=== PATIENT | female | born 1990 | race Caucasian/White ===

== ENCOUNTER → 2020-08-11 16:21 | Outpatient (CLI) | payer OTHER, SELFPAY | PROVIDERS: PCP Registered Nurse; Visit Provider Physician Assistant | DX: N34.3 Urethral syndrome, unspecified (principal) | CPT/HCPCS: 87086 ==

== ENCOUNTER 2020-08-14 15:05 | Emergency (ER) | payer OTHER, SELFPAY ==
[2020-08-14 15:20] VITALS: BP 155/97; PULSE 88; RESP 16; TEMP 36.2; O2SAT 99; BMI 20.5
[2020-08-14 15:55] LABS: Alanine Aminotransferase 18 IU/L (<35)
[2020-08-14 16:39] LABS: Hepatitis B Surface Antigen NEGATIVE s/c (NEGATIVE)
[2020-08-14 16:56] LABS: HIV 1 & 2 Ab/Ag 4th Gen Combo NEGATIVE (NEGATIVE); Hep C Virus Ab w/Reflex Quant NEGATIVE s/c (NEGATIVE)
--- NOTE | 2020-08-14 18:13 | ED.GENADULT ---
HPI - General Adult <PITA Suarez - Last Filed: 08/14/20 18:25> General Chief complaint: Blood/Body fluid exposure Stated complaint: LEFT HAND NEEDLE STICK Time Seen by Provider: 08/14/20 17:26 Source: patient Mode of arrival: Ambulatory Limitations: no limitations History of Present Illness HPI narrative: This is a 29-year-old female, nonsmoker, who has past medical history significant for type 1 diabetes using insulin and hypothyroidism presents to ED after accidental needle stick when she was vaccinating community members at [facility] for COVID. Patient not initially feel the needle prick but so blood her hand/glove on left tip of index finger and is not sure who she had exposed. Patient reports she cleaned well the area well with soap and water after. 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 She reports Tdap is up to date. PCP Miladys Goldberg. Related Data Home Medications Medication Instructions Recorded Confirmed insulin glargine 100 unit/mL (3 21 unit SUBCUT DAILY ml 07/14/20 08/11/20 mL) subcutaneous pen levothyroxine 137 mcg capsule 137 mcg PO DAILY 07/14/20 08/11/20 prenat.vits,evonne,gwm-[id number]-ksiyd 1 tab PO DAILY 08/05/20 08/11/20 Previous Rx's Medication Instructions Recorded insulin lispro 100 unit/mL See Rx Instructions SUBCUT 07/14/20 subcutaneous pen .COMPLEX #3 ml sulfamethoxazole 800 1 tab PO BID 7 Days #14 tab 08/11/20 mg-trimethoprim 160 mg tablet Allergies Allergy/AdvReac Type Severity Reaction Status Date / Time No Known Drug Allergies Allergy Unverified 08/14/20 15:25 Review of Systems <PITA Suarez - Last Filed: 08/14/20 18:25> Review of Systems Narrative: General: Denies fever, chills, fatigue, malaise, sweats. HEENT: Denies sinus pain, ear pain, sore throat, difficulty swallowing, dizziness. Respiratory: Denies dyspnea, cough, wheezing, hemoptysis, sputum. Cardiovascular: Denies chest pain, palpitations, orthopnea, edema. Gastrointestinal: Denies nausea, vomiting, abdominal pain, diarrhea, constipation, melena. Skin: See HPI Patient History <PITA Suarez - Last Filed: 08/14/20 18:25> Medical History Hypothyroidism (~1999) Preeclampsia (~2018) Type 1 diabetes (~1992) UTI (urinary tract infection) Surgical History Anesthesia History of section (~09/18/18) History of tonsillectomy (~1996) Family History Father Hypertension Atrial fibrillation History of heart disease Hyperlipidemia Mother Rheumatoid arthritis Sister Diabetes mellitus Grandfather Hypertension Grandmother Cancer HCC (hepatocellular carcinoma) Grandfather Alzheimer's disease Grandmother Alzheimer's disease Social History Smoking Status: Never smoker Smoking Status: Never smoker Substance Use Type: does not use Exam <PIAT Suarez - Last Filed: 08/14/20 18:25> Narrative Exam Narrative: General appearance: well developed, well nourished, in no acute distress. Head: normocephalic, atraumatic, no scalp lesions, non-tender. ENT: Hearing grossly intact. Airway patent. Neck/Thyroid: neck supple, full range of motion, no visible masses or meningeal signs. No JVD, non-tender without lymphadenopathy. Skin: no suspicious rashes, lesions over visible areas. Warm and dry and appropriate color for ethnicity. Unable to see puncture wound on left index finger. Heart: no clubbing, no cyanosis, no edema. Lungs: Breathing even and unlabored. No stridor. No accessory muscles used. Able to speak in full sentences. Chest: normal shape and expansion. Abdomen: non-obese, non-distended. Neurologic: alert and oriented. 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 Psych: good eye contact, normal affect. Initial Vital Signs Initial Vital Signs: Vital Signs Temperature 97.1 F L 08/14/20 15:20 Pulse Rate 88 08/14/20 15:20 Respiratory Rate 16 08/14/20 15:20 Blood Pressure 155/97 H 08/14/20 15:20 Pulse Oximetry 99 08/14/20 15:20 <Varghese Bagley DO - Last Filed: 08/14/20 18:56> Initial Vital Signs Initial Vital Signs: Vital Signs Temperature 97.1 F L 08/14/20 15:20 Pulse Rate 88 08/14/20 15:20 Respiratory Rate 16 08/14/20 15:20 Blood Pressure 155/97 H 08/14/20 15:20 Pulse Oximetry 99 08/14/20 15:20 Scores <Trevon GibbonsPITA gonsalves - Last Filed: 08/14/20 18:25> GCS [place] coma scale eye opening: Spontaneous Sinan coma scale verbal response: Orientated [place] coma scale motor response: Obey commands [place] coma scale total score: 15 Course <Trevon StokesangLakePITA Zhu - Last Filed: 08/14/20 18:25> Vital Signs Vital signs: Vital Signs - 8 hr 08/14/20 15:20 08/14/20 18:18 Temperature 97.1 F L Pulse Rate 88 70 Respiratory Rate 16 16 Blood Pressure 155/97 H 142/86 H Pulse Oximetry 99 99 <Varghese Bagley DO - Last Filed: 08/14/20 18:56> Vital Signs Vital signs: Vital Signs - 8 hr 08/14/20 15:20 08/14/20 18:18 Temperature 97.1 F L Pulse Rate 88 70 Respiratory Rate 16 16 Blood Pressure 155/97 H 142/86 H Pulse Oximetry 99 99 Medical Decision Making <Trevon GibbonsPITA gonsalves - Last Filed: 08/14/20 18:25> Differential Diagnosis Differential Diagnosis: Needle stick exposure Medical Records Medical records reviewed: Yes I reviewed the patient's medical records. Lab Data Lab results reviewed: Yes I reviewed the patient's lab results. Labs: Lab Results 08/14/20 08/14/20 Range/Units 15:39 15:39 ALT 18 (<35) IU/L Hep Bs Antigen Negative (NEGATIVE) s/c Hepatitis C Antibody Negative (NEGATIVE) s/c HIV 1&2 Ab/P24 Ag 4thGn Negative (NEGATIVE) MDM Narrative Additional Information: This is a 29-year-old female who was doing volunteer work to immunize community member at [facility] [employer] with COVID vaccination and accidentally had a needlestick on left tip of index finger. 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 Initial needle exposure pannel drawn. Negative for HIV 1 & 2, Hep C antibody, Hep B Antigen. Pending for Hep B antibody. We discussed that it is very important to follow-up with primary care physician since this is not a work injury that she can follow up with employee health. Patient is asymptomatic at this time. In shared decision making, she deferred prophylactic HIV medications. Patient reports has been trying to get . Patient advised using barriers during intercourse until the 2nd exposure test comes back as negative or clear by her primary care physician. Return precautions discussed with patient and she verbalized understanding and agreement with the treatment plan. <Varghese Kevyn, DO - Last Filed: 08/14/20 18:56> Lab Data Labs: Lab Results 08/14/20 08/14/20 Range/Units 15:39 15:39 ALT 18 (<35) IU/L Hep Bs Antigen Negative (NEGATIVE) s/c Hepatitis C Antibody Negative (NEGATIVE) s/c HIV 1&2 Ab/P24 Ag 4thGn Negative (NEGATIVE) Discharge Plan Departure Patient Disposition: Home Clinical Impression: Needlestick injury accident with exposure to body fluid Instructions: DI for Accidental Exposure to Body Fluids Activity Restrictions/Additional Instructions: You have been diagnosed with [accidental body fluid exposure from needlestick during vaccinating community people at [facility]. Current lab findings assuring with negative hep B antigen, hep C antibody, HIV tests. Currently waiting for hep B antibody results. In shared decision making, the deferred prophylactic HIV medications. Please follow-up with primary care physician for further lab evaluation and follow-ups.]. What to do: *Take your medications as directed. *Follow up with your primary care provider in 2-3 days, call for an appointment. Let them know you were seen in the ED and that we asked you to be seen in follow up. *Return to ED if you have any new, worsening, or concerning symptoms, such as [chest pain, breathing difficulty, unable to tolerate fluids, jaundice, abdominal pain, fever, unusual rashes, fatigue or any acute concerns]. Prescriptions: No Action sulfamethoxazole-trimethoprim [Bactrim DS] 800-160 mg tablet 1 tab PO BID 7 Days Qty: 14 RF: 0 Lantus Solostar U-100 Insulin 100 unit/mL (3 mL) insulin pen 21 unit SUBCUT DAILY RF: 0 levothyroxine 137 mcg capsule 137 mcg PO DAILY RF: 0 insulin lispro [Humalog KwikPen Insulin] 100 unit/mL insulin pen See Rx Instructions SUBCUT .COMPLEX Qty: 3 RF: 0 prenat.vits,evonne,osd-btnm-woops Tablet 1 tab PO DAILY RF: 0 Referrals: Miladys Goldberg ARNP [Primary Care Provider] - <Varghese Bagley DO - Last Filed: 08/14/20 18:56> Cosign ED Attending Cosignature Attestation: Dr Bagley Co-Sign Statement: I was available for consultation during this patient's emergency department visit. This chart is signed by myself for administrative purposes only. I did not have direct contact with this patient during this visit. They were seen independently by the APC.
[2020-08-14 18:18] VITALS: BP 142/86; PULSE 70; RESP 16; O2SAT 99
[2020-08-15 07:22] LABS: Hepatitis B Surf Ab Qualitativ Reactive (.)
== END 2020-08-14 18:19 | disposition home or self-care (01) ==
PROVIDERS: Emergency Medicine; Emergency Provider Nurse Practitioner Family; PCP Registered Nurse
DX: Z77.21 Contact with and (suspected) exposure to potentially hazardous body fluids (principal); Y99.0 Civilian activity done for income or pay
CPT/HCPCS: 36415; 84460; 86706; 86803; 87340; 87389; 99283

== ENCOUNTER → 2020-09-01 10:22 | Outpatient (CLI) | payer OTHER, SELFPAY ==
[2020-09-01 11:40] LABS: Add Manual Diff / Slide Review NO; Basophils Absolute Auto 0 /uL (0-100); Basophils Percent Auto 0.7 % (0-2); Eosinophils Absolute Auto 200 /uL (0-450); Eosinophils Percent Auto 2.6 % (2-4); Hematocrit 39.8 % (36-46); Hemoglobin 13.8 g/dL (12.0-16.0); Lymphocytes Absolute Auto 2300 /uL (1100-4500); Lymphocytes Percent Auto 38.3 % (25-40); Mean Corpuscular HGB Conc 34.7 % (30-36); Mean Corpuscular Hemoglobin 31.2 PG (26-34); Mean Corpuscular Volume 89.7 fL (80-100); Monocytes Absolute Auto 600 /uL (0-900); Monocytes Percent Auto 9.2 % (3-14); Neutrophils Absolute Auto 2900 /uL (1500-7000); Neutrophils Percent Auto 49.2 % (50-75); Platelet Count 288 X10^3/uL (150-400); Red Blood Cell Count 4.43 X10^6/uL (4.0-5.2); Red Cell Distribution Width 11.9 % (11.6-14.8)
[2020-09-01 12:10] LABS: Alanine Aminotransferase 24 IU/L (<35); Albumin 4.7 g/dL (3.5-5.0); Albumin Globulin Ratio 1.5 (1.0-2.8); Alkaline Phosphatase 57 U/L (38-126); Aspartate Aminotransferase 33 IU/L (14-36); BUN Creatinine Ratio 21.3 (6-22); Bilirubin Total 0.5 mg/dL (0.2-1.3); Blood Urea Nitrogen 10 mg/dL (7-17); Carbon Dioxide 28 mmol/L (22-32); Chloride 102 mmol/L (98-107); Estimated Glomerular Filt Rate > 60.0 mL/min (>60); Globulin 3.2 g/dL (1.7-4.1); Glucose 64 mg/dL (70-100); HEMOLYSIS < 15 (0-50); Potassium 3.9 mmol/L (3.4-5.1); Sodium 140 mmol/L (137-145); Total Protein 7.9 g/dL (6.3-8.2)
[2020-09-01 14:40] LABS: Hep C Virus Ab w/Reflex Quant NEGATIVE s/c (NEGATIVE)
[2020-09-01 14:41] LABS: HIV 1 & 2 Ab/Ag 4th Gen Combo NEGATIVE (NEGATIVE)
== END ==
PROVIDERS: PCP Registered Nurse; Referring Provider Registered Nurse; Visit Provider Registered Nurse
DX: E03.9 Hypothyroidism, unspecified (principal); E10.9 Type 1 diabetes mellitus without complications; Z00.00 Encounter for general adult medical examination without abnormal findings; Z11.4 Encounter for screening for human immunodeficiency virus [HIV]; Z11.59 Encounter for screening for other viral diseases
CPT/HCPCS: 36415; 80053; 85025; 86803; 87389

== ENCOUNTER → 2020-09-25 14:44 | Outpatient (CLI) | payer OTHER, SELFPAY ==
[2020-09-25 17:36] LABS: HIV 1 & 2 Ab/Ag 4th Gen Combo NEGATIVE (NEGATIVE); Hep C Virus Ab w/Reflex Quant NEGATIVE s/c (NEGATIVE)
== END ==
PROVIDERS: PCP Registered Nurse; Referring Provider Registered Nurse; Visit Provider Registered Nurse
DX: Z11.59 Encounter for screening for other viral diseases (principal); Z11.4 Encounter for screening for human immunodeficiency virus [HIV]
CPT/HCPCS: 36415; 86803; 87389

== ENCOUNTER → 2020-10-30 08:08 | Outpatient (CLI) | payer OTHER, SELFPAY | PROVIDERS: PCP Registered Nurse; Referring Provider Registered Nurse; Visit Provider Registered Nurse | DX: Z78.9 Other specified health status (principal) | CPT/HCPCS: 36415; 87522 ==

== ENCOUNTER → 2020-12-13 11:11 | Outpatient (CLI) | payer OTHER, SELFPAY | PROVIDERS: PCP Registered Nurse; Visit Provider Physician Assistant | DX: N39.0 Urinary tract infection, site not specified (principal) | CPT/HCPCS: 87086 ==

== ENCOUNTER → 2021-01-01 13:33 | Outpatient (CLI) | payer OTHER, SELFPAY ==
[2021-01-04 16:22] LABS: HIV 1 & 2 Ab/Ag 4th Gen Combo NEGATIVE (NEGATIVE)
== END ==
PROVIDERS: PCP Registered Nurse; Referring Provider Registered Nurse; Visit Provider Registered Nurse
DX: Z11.4 Encounter for screening for human immunodeficiency virus [HIV] (principal)
CPT/HCPCS: 36415; 87389

== ENCOUNTER → 2021-02-15 07:57 | Outpatient (CLI) | payer OTHER, SELFPAY ==
[2021-02-15 09:31] LABS: Hemoglobin A1C% w Est Avg Glu 6.5 % (4.0-6.0)
[2021-02-15 09:48] LABS: Alanine Aminotransferase 22 IU/L (<35); Albumin 4.4 g/dL (3.5-5.0); Albumin Globulin Ratio 1.6 (1.0-2.8); Alkaline Phosphatase 50 U/L (38-126); Aspartate Aminotransferase 34 IU/L (14-36); BUN Creatinine Ratio 22.4 (6-22); Bilirubin Total 0.6 mg/dL (0.2-1.3); Blood Urea Nitrogen 11 mg/dL (7-17); Calcium 9.3 mg/dL (8.4-10.2); Carbon Dioxide 30 mmol/L (22-32); Chloride 105 mmol/L (98-107); Cholesterol 168 mg/dL (140-199); Estimated Glomerular Filt Rate > 60.0 mL/min (>60); Globulin 2.8 g/dL (1.7-4.1); Glucose 119 mg/dL (70-100); HDL Cholesterol 65 mg/dL (40-60); HEMOLYSIS < 15 (0-50); LDL Cholesterol Calculated 96 mg/dL (<100); Potassium 4.2 mmol/L (3.4-5.1); Sodium 140 mmol/L (137-145); Total Protein 7.2 g/dL (6.3-8.2); Triglycerides 36 mg/dL (35-150)
[2021-02-15 09:49] LABS: Creatinine Urine Random 173.3 mg/dL
[2021-02-15 09:56] LABS: Microalbumin Urine Random < 0.6 mg/dL (0-1.6)
[2021-02-15 10:16] LABS: Thyroid Stimulating Hormone 0.215 uIU/mL (0.47-4.68)
[2021-02-15 18:20] LABS: HIV 1 & 2 Ab/Ag 4th Gen Combo NEGATIVE (NEGATIVE)
== END ==
PROVIDERS: PCP Registered Nurse; Referring Provider Registered Nurse; Visit Provider Registered Nurse
DX: Z11.4 Encounter for screening for human immunodeficiency virus [HIV] (principal); E03.9 Hypothyroidism, unspecified; E10.9 Type 1 diabetes mellitus without complications; Z82.49 Family history of ischemic heart disease and other diseases of the circulatory system
CPT/HCPCS: 36415; 80053; 80061; 82043; 82570; 83036; 84443; 87389

== ENCOUNTER → 2021-04-08 09:48 | Outpatient (CLI) | payer OTHER, SELFPAY ==
[2021-04-08 10:48] LABS: Hemoglobin A1C% w Est Avg Glu 6.4 % (4.0-6.0)
[2021-04-08 11:01] LABS: Alanine Aminotransferase 19 IU/L (<35); Albumin 4.7 g/dL (3.5-5.0); Albumin Globulin Ratio 1.6 (1.0-2.8); Alkaline Phosphatase 43 U/L (38-126); Aspartate Aminotransferase 32 IU/L (14-36); BUN Creatinine Ratio 17.5 (6-22); Bilirubin Total 0.6 mg/dL (0.2-1.3); Blood Urea Nitrogen 10 mg/dL (7-17); Calcium 9.6 mg/dL (8.4-10.2); Carbon Dioxide 27 mmol/L (22-32); Chloride 103 mmol/L (98-107); Cholesterol 177 mg/dL (140-199); Estimated Glomerular Filt Rate > 60.0 mL/min (>60); Glucose 74 mg/dL (70-100); HDL Cholesterol 68 mg/dL (40-60); HEMOLYSIS < 15 (0-50); LDL Cholesterol Calculated 101 mg/dL (<100); Potassium 3.9 mmol/L (3.4-5.1); Sodium 139 mmol/L (137-145); Total Protein 7.7 g/dL (6.3-8.2); Triglycerides 38 mg/dL (35-150)
[2021-04-08 12:17] LABS: Creatinine Urine Random 26.6 mg/dL
[2021-04-08 12:21] LABS: Thyroid Stimulating Hormone 1.64 uIU/mL (0.47-4.68)
[2021-04-08 12:24] LABS: Microalbumin Urine Random < 0.6 mg/dL (0-1.6)
== END ==
PROVIDERS: PCP Registered Nurse; Referring Provider Registered Nurse; Visit Provider Registered Nurse
DX: E03.9 Hypothyroidism, unspecified (principal); E10.9 Type 1 diabetes mellitus without complications
CPT/HCPCS: 36415; 80053; 80061; 82043; 82570; 83036; 84443